=== PATIENT | female | born 1965 | race Caucasian/White ===

== ENCOUNTER 2018-06-24 07:47 | Day surgery (SDC) | payer OTHER, SELFPAY ==
[2018-06-24 08:04] VITALS: BP 128/72; PULSE 106; RESP 14; TEMP 36.6; O2SAT 99; BMI 25.1
[2018-06-24 09:21] VITALS: BP 108/72; BP 128/72; PULSE 94; RESP 16; TEMP 36.6; O2SAT 100
--- NOTE | 2018-06-24 09:21 | PCM.OPRPT ---
Problem List (1) Diarrhea Status: Acute Qualifiers: Diarrhea type: unspecified type Qualified Code(s): R19.7 - Diarrhea, unspecified Report of Operation Date of Procedure: 06/24/18 Pre-Operative Diagnosis: 1. Patient is ever had screening colonoscopy and she is over age 50. 2. Chronic diarrhea since surgery 3 years ago Post-Operative Diagnosis: Normal colonoscopy Surgery/Procedure Performed:: Colonoscopy Specimen's removed: None Description of Procedure: The major risks and benefits associated with the procedure were explained to the patient in detail. The patient verbalized understanding and agreement with the same. The patient was brought to the endoscopy suite. After adequate sedation was achieved, the patient was placed in the left lateral decubitus position and a digital rectal exam was performed. This examination was within normal limits. A well-lubricated colonoscope was then inserted into the rectum and advanced under direct visualization to the level of the cecum. The bowel prep was good. The cecum was identified by both visual and anatomic landmarks. A photograph was taken of the end of the cecum. The scope was then fully withdrawn while examining the color, texture, anatomy and integrity of the mucosa from the cecum to the anal canal. The findings were consistent with normal colonic mucosa. Over 6 minutes were taken to examine the colonic mucosa. Upon reaching the rectum the scope was retroflexed to examine the distal rectal vault. The scope was then straightened and was completely retrieved upon exiting the anal canal and the procedure was terminated. The patient was then transferred to the recovery room in stable condition. I found no explanation for her chronic diarrhea. Recommendations for follow up: 10 years
[2018-06-24 09:25] VITALS: BP 128/72; BP 89/59; PULSE 101; RESP 16; O2SAT 100
[2018-06-24 09:30] VITALS: BP 112/88; BP 128/72; PULSE 96; RESP 16; O2SAT 100
[2018-06-24 09:35] VITALS: BP 126/48; BP 128/72; PULSE 95; RESP 16; TEMP 37.2; O2SAT 100
[2018-06-24 09:55] VITALS: BP 128/72
== END 2018-06-24 10:02 | disposition home or self-care (01) ==
LOC: EN 07:48 → AC 07:51
PROVIDERS: Family Provider Family Medicine; PCP Family Medicine; Visit Provider Surgery
PROC: 0DJD8ZZ Inspection of Lower Intestinal Tract, Via Natural or Artificial Opening Endoscopic (ICD-10-PCS; CPT 45378; principal; 2018-06-24 08:40)
DX: Z12.11 Encounter for screening for malignant neoplasm of colon (principal); K58.0 Irritable bowel syndrome with diarrhea; G43.909 Migraine, unspecified, not intractable, without status migrainosus; Z79.899 Other long term (current) drug therapy; Z78.0 Asymptomatic menopausal state; Z86.2 Personal history of diseases of the blood and blood-forming organs and certain disorders involving the immune mechanism; Z90.710 Acquired absence of both cervix and uterus
CPT/HCPCS: 45378; J7120

== ENCOUNTER → 2018-06-30 15:54 | Outpatient (CLI) | payer OTHER, SELFPAY ==
--- NOTE | 2018-06-30 15:57 | BI_ITS ---
MAMMOGRAPHY - BILATERAL SCREENING REASON FOR EXAM: Female, 53 years old. Routine annual screening examination. PERTINENT HISTORY: Non-contributory. Remote left ultrasound guided biopsy. TECHNIQUE: Digital bilateral breast bonnie (3D mammographic acquisition) in the CC and MLO projections. 2-D mediolateral oblique (MLO) and craniocaudad (CC) views of both breasts were obtained. CAD: Full Field Digital Mammography with Computer Added Detection was performed. COMPARISON: Comparison is made with prior study dated June 21, 2017 and June 06, 2015. FINDINGS: Breast Composition: The breasts are heterogeneously dense, which may obscure small masses. There are no dominant masses or suspicious calcifications. Stable benign appearing axillary lymph nodes. No other significant abnormalities are identified. There has been no significant change since the prior study. BI/SCREENING MAMM (CAD), BILAT IMPRESSION: Stable bilateral screening mammogram. Yearly follow-up mammogram recommended. (A) ASSESSMENT CATEGORY: BIRADS Category 2: Benign. A letter regarding these results will be sent to the patient by the facility within 30 days. Approximately 10% of breast cancers are not detected by mammography. A normal mammogram should not delay biopsy of a clinically suspicious abnormality. [id number] Electronically Signed: Paolo Shine MD at 9:22 EDT Tel [phone], Service support ,
== END ==
PROVIDERS: Family Provider Family Medicine; PCP Family Medicine; Visit Provider Obstetrics & Gynecology
DX: Z12.31 Encounter for screening mammogram for malignant neoplasm of breast (principal)
CPT/HCPCS: 77063; 77067

== ENCOUNTER → 2018-07-04 08:47 | Outpatient (CLI) | payer OTHER, SELFPAY ==
--- NOTE | 2018-07-04 08:53 | US_ITS ---
STUDY: ABDOMINAL ULTRASOUND - RIGHT UPPER QUADRANT REASON FOR VISIT: Female, 53 years old. Chronic diarrhea TECHNIQUE: Ultrasound evaluation of the right upper quadrant was performed with real-time and static andrade-scale imaging. TECHNICAL QUALITY: Adequate. COMPARISON: CT July 21, 2012 FINDINGS: Liver: The liver measures 14.4 cm. There is normal echogenicity of the liver. The bile ducts are within normal limits. There is hepatic color flow. The direction of portal flow is hepatopetal. There is no demonstrated mass lesion. Gallbladder: Normal distended gallbladder. The gallbladder wall measures 2.4 mm. There is a positive sonographic Pereira's sign. There is no pericholecystic fluid. There are multiple echogenic structures within the gallbladder, consistent with multiple gallstones. Common Bile Duct (C.B.D.): The common bile duct measures 2. mm. Pancreas: Normal size of the head, body and tail of the pancreas. There is increased echogenicity of the pancreas. There is no demonstrated pancreatic mass or cyst. Right Kidney: Normal size of the right kidney. The right kidney measures 10 x 5 x 4.4 cm. Normal renal cortex. The right cortex measures 1.6 cm. There is no demonstrated renal mass or cyst. There is no right hydronephrosis. US/Abdomen Limited IMPRESSION: Positive Pereira sign. Cholelithiasis. Findings suggest cholecystitis. Electronically Signed: Hugh Xiong MD at 22:37 EDT , Service support ,
[2018-07-04 11:18] LABS: Vitamin D,25 Hydroxy 32.2 ng/mL (29.95-100.01)
[2018-07-04 11:27] LABS: AST(SGOT) 20 U/L (15-37); Alanine Aminotransfer ALT/SGPT 22 U/L (13-56); Albumin, Serum 4.1 g/dL (3.2-5.0); Alkaline Phosphatase 70 U/L (45-117); Anion Gap 7 (5-15); BUN 12 mg/dL (7-18); BUN/Creat Ratio 15.7 RATIO (10-20); Calcium,Total 9.1 mg/dL (8.5-10.1); Chloride 107 mmol/L (98-107); Cholesterol 193 mg/dL (200); Creatinine, Serum 0.76 mg/dL (0.55-1.02); EST Glomerular Filtration Rate 84 mL/min (>60); Est Glom Filt Rate - Afr Amer 101 mL/min (>60); Globulin 4.1 g/dL (2.2-4.2); Glucose 85 mg/dL (74-106); High Density Lipoprotein 89 mg/dL; Potassium 3.7 mmol/L (3.5-5.1); Protein, Total 8.2 g/dL (6.4-8.2); Sodium Level 142 mmol/L (136-145); Thyroid Stim Hormone (TSH) 2.51 uIU/mL (0.358-3.74); Triglycerides 74 mg/dL; Very Low Density Lipoprotein 15 mg/dL (5-40)
== END ==
PROVIDERS: Family Provider Family Medicine; PCP Family Medicine; Visit Provider Family Medicine
DX: K58.9 Irritable bowel syndrome, unspecified (principal); E55.9 Vitamin D deficiency, unspecified; Z13.220 Encounter for screening for lipoid disorders; R19.7 Diarrhea, unspecified
CPT/HCPCS: 36415; 76705; 80053; 80061; 82306; 84443

== ENCOUNTER → 2019-05-11 13:59 | Outpatient (CLI) | payer SELFPAY ==
[2019-05-11 15:59] LABS: Absolute Lymphocyte Count 1.49 X10^3/ul (0.83-4.51); Absolute Neutrophil Count 2.8 X10^3/uL (2.0-7.7); Basophil# 0.04 X10^3/uL; Basophil% 0.8 % (0-1); Eosinophil# 0.11 X10^3/uL; Eosinophils% 2.3 % (0-5); Hematocrit 41.6 % (37-47); Hemoglobin 13.5 g/dl (12.0-15.0); Lymphocyte # 1.49 X10^3/ul (4.0); Lymphocyte % 30.6 % (19-41); Mean Corp Hgb Conc 32.5 g/gl (32-36); Mean Corpuscular Hgb 30.5 pg (27.0-32.0); Mean Corpuscular Volume 93.9 fL (81-99); Mean Platelet Vol. 12.3 fl (6.2-12.0); Monocyte% 8.2 % (0-10); Neutrophil # 2.82 X10^3/uL (2.7-7.7); Neutrophil % 57.9 % (47-70); Platelet Count 197 K/mm3 (150-450); RBC Distribution Width CV 12.2 % (11.6-14.6); RBC Distribution Width SD 41.3 fl (35.1-43.9); Red Blood Count 4.43 M/mm3 (4.2-5.4); White Blood Count 4.9 K/mm3 (4.4-11.0)
[2019-05-11 16:01] LABS: POSITIVE COUNT NO; POSITIVE DIFFERENTIAL NO; POSITIVE MORPHOLOGY NO
[2019-05-11 16:07] LABS: ALB/GLOB Ratio 0.9 RATIO (0.9-2.4); AST(SGOT) 22 U/L (15-37); Alanine Aminotransfer ALT/SGPT 26 U/L (13-56); Albumin, Serum 3.7 g/dL (3.2-5.0); Alkaline Phosphatase 67 U/L (45-117); Anion Gap 10 (5-15); BUN 12 mg/dL (7-18); BUN/Creat Ratio 14.4 RATIO (10-20); Calcium,Total 8.8 mg/dL (8.5-10.1); Chloride 106 mmol/L (98-107); Creatinine, Serum 0.84 mg/dL (0.55-1.02); EST Glomerular Filtration Rate 75 mL/min (>60); Est Glom Filt Rate - Afr Amer 91 mL/min (>60); Glucose 92 mg/dL (74-106); Protein, Total 7.7 g/dL (6.4-8.2); Sodium Level 143 mmol/L (136-145)
[2019-05-11 16:12] LABS: Partial Thromboplast Time 29.8 Seconds (24.1-36.2)
== END ==
PROVIDERS: Family Provider Family Medicine; PCP Family Medicine; Visit Provider Family Medicine
DX: K81.9 Cholecystitis, unspecified (principal); E55.9 Vitamin D deficiency, unspecified
CPT/HCPCS: 36415; 80053; 82306; 85025; 85610; 85730

== ENCOUNTER 2019-06-10 13:30 | Day surgery (SDC) | payer SELFPAY ==
--- NOTE | 2019-05-14 02:25 | HP_ITS ---
Intake Vital Signs 05/14/19 Height 5 ft 7 in 05/14/19 Weight: 169 lb 5 oz 05/14/19 Body Mass Index (BMI) 26.5 05/14/19 Blood Pressure 120/78 05/14/19 Blood Pressure Location Rt brachial 05/14/19 Blood Pressure Position Sitting 05/14/19 Respiratory Rate 18 05/14/19 Pulse Rate 70 05/14/19 Pulse Ox 98 Intake Visit Reasons: CHOLECYSTITIS Chief Complaint: cholelithiasis, abd pain Crystal Growing Technician Required: No Is patient in pain?: Yes Pain scale (1-10): 4 Allergies amitriptyline Allergy (Mild, Verified 05/14/19 14:14) Rash fluticasone [From Advair Diskus] Allergy (Mild, Verified 05/14/19 14:13) hives Medications Ibuprofen [Advil] 200 mg PO Q4H PRN PRN 06/30/15 [History Confirmed 05/14/19] Nortriptyline HCl [Pamelor] 10 mg PO QHS 06/30/15 [History Confirmed 05/14/19] Topiramate [Topamax] 50 mg PO BID 06/30/15 [History Confirmed 05/14/19] eluxadoline 75 mg tablet 75 mg PO DAILY PRN 06/06/18 [History Confirmed 05/14/19] Is last menstrual period known: No Post menopausal: Yes Patient : No PFSH Medical History Gallstones (Acute) Diarrhea (Acute) Migraines (Acute) Surgical History History of arthroscopy of right knee (Acute) History of colonoscopy (Acute) History of lateral meniscus repair of left knee (Acute) History of lateral meniscus repair of right knee (Acute) H/O resection of small bowel (Acute) H/O tubal ligation (Acute) History of right oophorectomy (Acute) S/P appendectomy (Acute) h/o partial hysterectomy (Acute) h/o tonsillectomy (Acute) h/o torn meniscus (Acute) Family History Brother Asthma Mother Hypertension Heart disease Father Hypertension Heart disease Kidney disease Renal failure Brother Asthma Social History Smoking Status: Never smoker alcohol intake: never HPI HPI HPI: THAIS LOPEZ, is a 54 F who presents to the office today for HPI HPI Surgical H&P: Yes HPI: THAIS LOPEZ, is a 54 F who presents to the office today for evaluation of symptomatic cholelithiasis. For probably over a year and a half the patient has been experiencing right upper quadrant abdominal pain and diarrhea after she eats foods she has had a gallbladder ultrasound completed 07/04/2018 at that time she had a positive Pereira sign cholelithiasis and findings suggestive of acute cholecystitis however she did not undergo gallbladder surgery at that time at that time she was also noted to have a total bili of 1.5 but the rest of her liver function tests were within normal limits. She has met most of her fraser down in [place] and did not want to have her surgery down there at that time. Subsequently coming back up here now for the summer she is ready to have her gallbladder surgery performed. She is not experiencing any nausea or vomiting. Exam Const General: no acute distress, well developed, well hydrated Orientation: oriented to person, oriented to place, oriented to time [facility] Head: normocephalic, atraumatic Ears: external ears normal Mouth: moist mucous membranes Eyes Sclera: sclerae normal Pupils: normal by confrontation Neck Neck: no lymphadenopathy noted Neck mass: No Thyroid: thyroid normal, symmetrical Chest Chest palpation & inspection: normal inspection of the chest Resp Effort & Inspection: normal respiratory effort Auscultation: clear to auscultation bilaterally Percussion: percussion normal Cardio Rate: regular rate Rhythm: regular rhythm GI Palpation: soft, no hepatosplenomegaly, no masses, tender Auscultation: normal bowel sounds Rectal Exam: other Other: Rectal exam deferred. Extrem General: normal to inspection, no clubbing, cyanosis or edema Assessment & Plan Problems 1. Calculus of gallbladder with chronic cholecystitis without obstruction K80.10 2. Abdominal pain, RUQ R10.11 Plan My plan is to perform a laparoscopic cholecystectomy with intraoperative cholangiogram. The planned surgical procedure was discussed extensively with the patient. The risks, benefits, anticipated outcomes and possible complication were mentioned. My staff has also explained the procedure in understandable terms and the patient was given the option to take printed material concerning the planned procedure. The patient had the opportunity to ask questions concerning the planned procedure. The patient freely consents to the planned procedure. Coding Level of Care Code Off vis,new,level 3 Diagnoses Calculus of gallbladder with chronic cholecystitis without obstruction K80.10 ??Cholelithiasis location: gallbladder ??Cholecystitis acuity: chronic Abdominal pain, RUQ R10.11 05/14/19 1425 <Electronically signed by Porfirio carreon MD> Date _ Porfirio Key MD I have re-examined the patient. There are no clinical changes since date of exam.
[2019-05-14 14:12] VITALS: BMI 26.5
--- NOTE | 2019-06-05 13:23 | EKG12_ITS ---
Test Reason : PRE-OP Blood Pressure : / mmHG Vent. Rate : 093 BPM Atrial Rate : 093 BPM P-R Int : 134 ms QRS Dur : 082 ms QT Int : 368 ms P-R-T Axes : 064 017 042 degrees QTc Int : 457 ms Normal sinus rhythm Nonspecific ST abnormality Abnormal ECG Confirmed by JARAD MIRELES, MICHELLE ([id number]), assistant film editor LAURNE HERNANDEZ ([id number]) on 06/08/2019 1:41:17 PM Referred By: Porfirio Key Confirmed By:MICHELLE ABRAHAM MD
[2019-06-10] VITALS (8 sets, daily range): BP systolic 109–126; BP diastolic 65–77; PULSE 56–100; RESP 16–18; TEMP 36.4–36.9; O2SAT 96–100; BMI 25.0
[2019-06-10] MEDS: Cefazolin 2 GM in 0.9% Normal Saline 100 ML IV (14:42)
--- NOTE | 2019-06-10 14:55 | PCM.OPRPT ---
Problem List (1) Calculus of gallbladder with chronic cholecystitis without obstruction Status: Chronic (2) Right upper quadrant pain Status: Acute Report of Operation Date of Procedure: 06/10/19 Pre-Operative Diagnosis: Calculus of the gallbladder with chronic cholecystitis. Right upper quadrant abdominal pain Post-Operative Diagnosis: Same Surgery/Procedure Performed:: Laparoscopic cholecystectomy Type of Anesthesia:: General Anesthesiologist: Krunal Ba Specimen's removed: Gallbladder Estimated Blood Loss (mL): < 25 cc Description of Procedure: Patient was brought into the operating room. Placed in the supine position. Under excellent general endotracheal base of the abdomen was sterilely prepped and draped in usual fashion. Local was injected in the midline small incision was made place a varies needle inside the abdomen but I got high pressures and I immediately removed it I therefore made an incision in the right upper quadrant used the Visiport and gain access into the intra-abdominal cavity without difficulty or injury to underlying structures. Patient was noted to have dense adhesions in the lower midline. I placed a subxiphoid #5 trocar and just inferior to this I placed another #5 trocar both of these under direct visualization. I then inspected the right lower quadrant of the abdomen I injected local found an area where I could place a 1012 trocar without difficulty although it was not in the midline incision was made and a 1012 trocar was placed without difficulty under direct visualization. Patient was placed in the head up and rotated to the left position fundus of the gallbladder was grasped retracted cephalad direction infundibulum was grasped retracted laterally I dissected out the cystic duct placed hemoclips proximally distally and ligated the duct identified the cystic artery placed hemoclips proximally distally and ligated the artery. There is a posterior branch of the cystic artery which identified and I placed a Hemoclip on this as well. I deliver the gallbladder from the gallbladder bed with use of electrocautery there was no spillage of bile or stones. Placed a specimen specimen bag and delivered through the umbilical port without difficulty I irrigated the right upper quadrant good hemostasis was noted. I removed the 1012 trocar and closed the fascia with a yoawzw-zz-pyima stitch of 0 Vicryl then reinspected the fascia was closed. I then remove the other trochars under direct visualization good hemostasis was noted. Skin incisions were closed with some particular stitches of 4-0 Monocryl. Steri-Strips were applied. Sterile dressings were applied. The patient tolerated the procedure well. - Admit VTE Documentation VTE Present on Admission: No VTE Mechan Device Prophylaxis: SCD's VTE Pharm Prophylaxis ordered?: No Reason prophylaxis not ordered:: Treatment Not Indicated
--- NOTE | 2019-06-10 14:56 | PCM.DC.GB ---
Discharge Diet: Light diet - advance as tolerated Discharge Activity: May Not Drive - for 2-3 days or while taking narcotic pain medications., - - Do not drive, work heavy equipment or sign legal documents for 24 hours. May shower in (days): 1 - with the bandage in place. Additional Activity Instructions:: Pain medication may cause nausea. You should typically eat light foods as you take your pain medications. Pain medication may also cause constipation. If this is a problem for you, please discuss with your doctor. Call your doctor if your incision/area has: Continuous Slow Oozing, Sudden Increased Bleeding, Increased Pain/ Swelling, Increased Redness, Foul Smelling Discharge Call your doctor if you observe: Fever of 101 or Higher Suture Line Care: Avoid Pulling/Pushing, Avoid Pinching/Bending Additional Dressing/Incision Instructions:: Leave operative bandaids on for 2 days. When you remove dressing, leave Steri-Strips on until your follow-up appointment, or until the Steri-Strips fall off on their own. Allergies/Adverse Reactions: Allergies amitriptyline Allergy (Mild, Verified 06/03/19 13:16) Rash fluticasone [From Advair Diskus] Allergy (Mild, Verified 06/03/19 13:16) hives Medications to take at Discharge Ibuprofen [Advil] 200 mg PO Q4H PRN PRN 06/30/15 Nortriptyline HCl [Pamelor] 10 mg PO QHS 06/30/15 Topiramate [Topamax] 75 mg PO BID 06/30/15 eluxadoline 75 mg tablet 75 mg PO DAILY PRN 06/06/18 proMETHazine tablet [Phenergan tablet] 25 mg PO PRN PRN 06/03/19 Oxycodone HCl/Acetaminophen [Percocet 5/325] 1 - 2 tab PO Q4H PRN PRN 6 Days #30 tab 06/10/19 The following prescriptions were given: Oxycodone HCl/Acetaminophen [Percocet 5/325] 1 - 2 tab PO Q4H PRN PRN 6 Days #30 tab PRN Reason: Pain Prescription Printed Orders to be completed after discharge: 12 Lead EKG [[facility]] Time Frame: 06/03/19, Facility: [facility], Location: Cardiovascular Services Primary Care Physician: Jesus Morillo MD [Primary Care Provider] - Test Results: Test results from this visit will be discussed in further detail at your follow-up appointment, if applicable. Please Follow Up With: Porfirio Key MD - Please call [phone] to schedule an appointment. When: 7 days after your surgery.
[2019-06-10] MEDS: Bupivacaine 0.5% PF 10 ML VIAL (15:20)
--- NOTE | 2019-06-10 15:25 | GALL_PTH ---
PATIENT: THAIS LOPEZ [place] [facility] [id number] AGE/SX: 54/F ROOM: RE06/10/[address]: Dr. Porfirio Key MD : [id number] BED: DIS: 06/10/2019 SPEC #: [id number] RECD: 06/10/19 16:32 STATUS: CALEB SILVIANO #: [id number] RACHID: 06/10/19 15:[address]: Porfirio Key DEPT: SURGICAL PATHOLOGY RECD BY: Tang Crowe ENTERED: 06/11/19 10:51 SP TYPE: AARTI NOE DR: Dr. Leland Morillo MD Tissues: Gallbladder, NOS Procedures: Surgery Specimen Level III HEADER OPERATION: Laparoscopic cholecystectomy PRE-OP DIAGNOSIS: Calculus of gallbladder, chronic cholecystitis, cholelithiasis TISSUE SUBMITTED: Gallbladder MICROSCOPIC DIAGNOSIS Gallbladder, cholecystectomy: Chronic cholecystitis and cholelithiasis. SJ:meredith 06/12/19 MICROSCOPIC DESCRIPTION Slides are reviewed. GROSS DESCRIPTION Received is one container labeled with the patient's name and designated gallbladder. The specimen consists of a gallbladder measuring 9 cm in length and up to 2.5 cm in diameter. The external surface is pink-fiore, smooth and glistening for the most part. Focally it is granular, hemorrhagic and contains cautery artifact. The gallbladder contains small amount of andrade mucoid bile and distended with multiple, multifaceted brown stones and stone fragments measuring in aggregate 4 x 4.5 x 2 cm and 0.5 to 1.5 cm in average dimension. The mucosa is bile-stained and without any mass lesions. The gallbladder wall measures up to 0.2 cm in thickness. Heat Treater Head sections from the gallbladder and the cystic duct are submitted in one cassette. / SJ:meredith 06/11/19 TC:3 CPT: 08557
[2019-06-10] MEDS: oxyCODONE 5 MG Tablet PO (18:09)
[2019-06-10] MEDS: Acetaminophen 325 MG Tablet PO (18:09)
== END 2019-06-10 18:25 | disposition home or self-care (01) ==
LOC: SDC 13:31 → AC 13:32
PROVIDERS: Family Provider Family Medicine; PCP Family Medicine; Referring Provider Surgery; Visit Provider Surgery
PROC: (CPT 47562; principal; 2019-06-10 15:05)
DX: K80.10 Calculus of gallbladder with chronic cholecystitis without obstruction (principal); K58.9 Irritable bowel syndrome, unspecified; E78.00 Pure hypercholesterolemia, unspecified; Z78.0 Asymptomatic menopausal state; Z79.899 Other long term (current) drug therapy; Z86.2 Personal history of diseases of the blood and blood-forming organs and certain disorders involving the immune mechanism
CPT/HCPCS: 00790; 47562; 88304; 93005; J7120; J2405

== ENCOUNTER → 2020-05-09 10:31 | Outpatient (CLI) | payer SELFPAY ==
[2019-06-10 13:54] VITALS: BMI 25.0
[2020-05-09 12:43] LABS: Vitamin D,25 Hydroxy 25.8 ng/mL
[2020-05-09 12:53] LABS: Anion Gap 6 (5-15); BUN 10 mg/dL (7-18); BUN/Creat Ratio 13.3 RATIO (10-20); Calcium,Total 9.1 mg/dL (8.5-10.1); Chloride 110 mmol/L (98-107); Creatinine, Serum 0.75 mg/dL (0.55-1.02); EST Glomerular Filtration Rate 84 mL/min (>60); Est Glom Filt Rate - Afr Amer 102 mL/min (>60); Glucose 99 mg/dL (74-106); Magnesium 2.4 mg/dL (1.6-2.6); Potassium 3.7 mmol/L (3.5-5.1); Sodium Level 143 mmol/L (136-145)
== END ==
PROVIDERS: PCP Family Medicine; Visit Provider Family Medicine
DX: E55.9 Vitamin D deficiency, unspecified (principal); G43.909 Migraine, unspecified, not intractable, without status migrainosus; R00.0 Tachycardia, unspecified
CPT/HCPCS: 36415; 80048; 82306; 83735; 84443

== ENCOUNTER → 2021-05-16 08:47 | Outpatient (CLI) | payer SELFPAY ==
[2019-06-10 13:54] VITALS: BMI 25.0
[2021-05-16 10:58] LABS: Anion Gap 9 (5-15); BUN 11 mg/dL (7-18); BUN/Creat Ratio 14.3 RATIO (10-20); Calcium,Total 9.5 mg/dL (8.5-10.1); Chloride 107 mmol/L (98-107); Cholesterol 204 mg/dL (200); Creatinine, Serum 0.77 mg/dL (0.55-1.02); EST Glomerular Filtration Rate 82 mL/min (>60); Est Glom Filt Rate - Afr Amer 99 mL/min (>60); Glucose 91 mg/dL (74-106); High Density Lipoprotein 83 mg/dL; Potassium 3.9 mmol/L (3.5-5.1); Sodium Level 139 mmol/L (136-145); Thyroid Stim Hormone (TSH) 3.66 uIU/mL (0.358-3.74); Triglycerides 108 mg/dL; Very Low Density Lipoprotein 22 mg/dL (5-40)
[2021-05-16 11:03] LABS: Vitamin D,25 Hydroxy 30.4 ng/mL
== END ==
PROVIDERS: PCP Family Medicine; Referring Provider Family Medicine; Visit Provider Family Medicine
DX: M85.80 Other specified disorders of bone density and structure, unspecified site (principal); Z13.220 Encounter for screening for lipoid disorders; Z13.29 Encounter for screening for other suspected endocrine disorder; K58.9 Irritable bowel syndrome, unspecified
CPT/HCPCS: 36415; 80048; 80061; 82306; 84443

== ENCOUNTER → 2022-05-16 | Outpatient (CLI) | payer SELFPAY ==
--- NOTE | 2022-05-16 15:51 | RAD_ITS ---
EXAM: XR CERVICAL SPINE, 4 OR 5 VIEWS CLINICAL INDICATION: MIGRAINE TECHNIQUE: Frontal, lateral and bilateral oblique views of the cervical spine. This report was created using Net[employer]ee[employer] report generation technology. COMPARISON: None. FINDINGS: VERTEBRAE: Loss of the cervical lordosis suggestive of muscle spasm. Preserved vertebral body height. No acute fracture. No spondylolisthesis. Multilevel facet arthropathy. DISC SPACES: Disc space narrowing at C5-6 and C6-7. Neural foraminal narrowing noted on the right at C5-6 and C6-7 the left at C4-5 and C5-6 related to uncinate joint hypertrophy. SOFT TISSUES: Unremarkable. No prevertebral soft tissue widening. LUNG APICES: Clear. RAD/Cerv Spine 4 or 5 Views IMPRESSION: Moderate spondylosis. Electronically Signed: Hermann Mccauley MD at 11:04 EDT ,
== END | disposition home or self-care (01) ==
PROVIDERS: PCP Family Medicine; Referring Provider Family Medicine; Visit Provider Family Medicine
DX: G43.009 Migraine without aura, not intractable, without status migrainosus (principal); M47.812 Spondylosis without myelopathy or radiculopathy, cervical region
CPT/HCPCS: 72050

== ENCOUNTER → 2022-06-21 | Outpatient (CLI) | payer SELFPAY ==
--- NOTE | 2022-06-21 17:54 | MRI_ITS ---
EXAM: MR HEAD WITHOUT INTRAVENOUS CONTRAST CLINICAL INDICATION: migrianes TECHNIQUE: Multiplanar and multisequence MR images of the brain were obtained without intravenous contrast. Magnetic field strength 1.5 T. This report was created using LeanKit report Koalify technology. COMPARISON: None. FINDINGS: BRAIN AND EXTRA-AXIAL SPACES: Unremarkable. No intra- or extra-axial hemorrhage. No evidence of acute infarct. No intracranial mass or mass effect. There is preservation of the andrade/white matter interface. Posterior fossa structures are unremarkable. Ventricles are appropriate for age. No hydrocephalus. Basal cisterns are patent. SELLA: Unremarkable. Normal sella turcica, pituitary gland, infundibular stalk, optic chiasm and hypothalamus. AUDITORY SYSTEM: Unremarkable. The internal auditory canals are patent. BONES/JOINTS: Unremarkable. No discrete lytic or blastic abnormalities. SINUSES: Unremarkable as visualized. Clear. MASTOID AIR CELLS: Unremarkable as visualized. Clear. ORBITS: Unremarkable as visualized. Both globes, extraocular muscles, optic nerves and retrobulbar fat appear unremarkable. VASCULATURE: Unremarkable as visualized. Normal flow voids in the major intracranial circulation. MRI/Brain without Contrast IMPRESSION: Negative MRI brain without intravenous contrast. Electronically Signed: David Dueñas MD at 2:19 EDT ,
== END | disposition home or self-care (01) ==
LOC: MRI 17:54
PROVIDERS: PCP Family Medicine; Visit Provider Family Medicine
DX: G43.009 Migraine without aura, not intractable, without status migrainosus (principal)
CPT/HCPCS: 70551

== ENCOUNTER → 2023-05-16 | Outpatient (CLI) | payer BC, SELFPAY ==
[2023-05-16 10:36] LABS: Erythrocyte Sedimentation Rate 14 mm/hr (0-30)
[2023-05-16 10:40] LABS: Absolute Neutrophil Count 2.6 X10^3/uL (2.0-7.7); Basophil# 0.04 X10^3/uL; Basophil% 0.8 % (0-1); Eosinophil# 0.08 X10^3/uL; Eosinophils% 1.7 % (0-5); Hematocrit 42.5 % (37-47); Hemoglobin 13.7 g/dL (12.0-15.0); Lymphocyte % 35.2 % (19-41); Mean Corp Hgb Conc 32.2 g/dL (32-36); Mean Corpuscular Hgb 30.9 pg (27.0-32.0); Mean Corpuscular Volume 95.9 fL (81-99); Mean Platelet Vol. 13.2 fl (6.2-12.0); Monocyte% 8.3 % (0-10); NRBC Flagged by Analyzer 0 % (0-5); Neutrophil # 2.59 X10^3/uL (2.7-7.7); Neutrophil % 53.6 % (47-70); Platelet Count 175 K/mm3 (150-450); RBC Distribution Width CV 12.2 % (11.6-14.6); RBC Distribution Width SD 42.5 fl (35.1-43.9); Red Blood Count 4.43 M/mm3 (4.2-5.4); White Blood Count 4.8 K/mm3 (4.4-11.0)
[2023-05-16 11:02] LABS: Vitamin D,25 Hydroxy 42.7 ng/mL
[2023-05-16 11:41] LABS: Anion Gap 7 (5-15); BUN 13 mg/dL (7-18); Calcium,Total 8.9 mg/dL (8.5-10.1); Chloride 110 mmol/L (98-107); Cholesterol 198 mg/dL (200); Creatinine, Serum 0.72 mg/dL (0.55-1.02); EST Glomerular Filtration Rate 87 mL/min (>60); Est Glom Filt Rate - Afr Amer 106 mL/min (>60); Glucose 97 mg/dL (74-106); High Density Lipoprotein 65 mg/dL; Magnesium 2.4 mg/dL (1.6-2.6); Potassium 3.9 mmol/L (3.5-5.1); Sodium Level 140 mmol/L (136-145); Thyroid Stim Hormone (TSH) 4.34 uIU/mL (0.358-3.74); Triglycerides 136 mg/dL; Very Low Density Lipoprotein 27 mg/dL (5-40)
[2023-05-17 17:27] LABS: T4 Free Direct 0.75 ng/dL (0.76-1.46)
== END | disposition home or self-care (01) ==
LOC: MFPLAB 09:18
PROVIDERS: PCP Family Medicine; Visit Provider Family Medicine
DX: Z13.220 Encounter for screening for lipoid disorders (principal); Z13.29 Encounter for screening for other suspected endocrine disorder; M85.80 Other specified disorders of bone density and structure, unspecified site; E55.9 Vitamin D deficiency, unspecified; R25.2 Cramp and spasm
CPT/HCPCS: 36415; 80048; 80061; 82306; 83735; 84439; 84443; 85025; 85652

== ENCOUNTER → 2023-06-05 | Outpatient (CLI) | payer BC, SELFPAY ==
--- NOTE | 2023-06-05 11:23 | BD_ITS ---
STUDY: DUAL ENERGY X-RAY ABSORPTIOMETRY / DXA REASON FOR EXAM: Female, 58 years old. OSTEO TECHNIQUE: Bone Mineral Density (BMD) measurements of lumbar spine and bilateral hips were obtained. COMPARISON: Comparison is made with prior study dated May 23, 2017. FINDINGS: Lumbar Spine (L1-L4): g/cm2 (0.668) / T-score (-3.9) / Z-score (-2.4) Findings are suggestive of osteoporosis with a high fracture risk. Left Femur Total: g/cm2 (0.795) / T-score (-1.2) / Z-score (-0.2) Left Femoral Neck: g/cm2 (0.604) / T-score (-2.2) / Z-score (-0.9) Right Femur Total: g/cm2 (0.827) / T-score (-0.9) / Z-score (0.0) Right Femoral Neck: g/cm2 (0.672) / T-score (-1.6) / Z-score (-0.3) The T-Scores on the most recent prior examination were: Lumbar Spine (L1-L4): There has been worsening of bone density since the previous examination. Left Femur Total: which represents an improvement of 2.5%. Right Femur Total: which represents an improvement of 6.6%. BD/Dexa Bone Density Study IMPRESSION: The patient is considered osteoporotic as outlined below according to World Gallo Organization (WHO) criteria with a high fracture risk. There has been worsening of bone density since the previous examination. Reference Information: The T-score is the number of standard deviations above or below the standard which is normal for young adults at their peak bone mineral density. The World Health Organization (WHO) interprets the T-scores as follows: Above -1 Normal bone density Between -1 and -2.5 Osteopenia Equal to / or below -2.5 Osteoporosis As a practical clinical guideline, osteopenia may be graded as follows: Mild -1 through -1.5 Moderate -1.6 through -2.0 Severe -2.1 through -2.4 The Z-score is the number of standard deviations above or below age-matched controls. A Z-score of less than -1.5 would be considered abnormal. References: 1. NIH Osteoporosis and Related Bone Diseases www osteo.org 2. International Society for Clinical Densitometry www iscd.org 3. National Osteoporosis Foundation www nof.org Electronically Signed: Paolo Shine MD at 11:18 EDT ,
== END | disposition home or self-care (01) ==
PROVIDERS: PCP Family Medicine; Referring Provider Family Medicine; Visit Provider Family Medicine
DX: M81.0 Age-related osteoporosis without current pathological fracture (principal); M85.80 Other specified disorders of bone density and structure, unspecified site
CPT/HCPCS: 77080

== ENCOUNTER → 2023-06-07 | Outpatient (CLI) | payer BC, SELFPAY ==
[2023-06-07 11:04] LABS: Ionized Calcium 5.05 mg/dL (4.36-5.20)
[2023-06-07 11:25] LABS: Magnesium 2.3 mg/dL (1.6-2.6); Phosphorus 3.6 mg/dL (2.5-4.9)
[2023-06-07 11:26] LABS: PTHIN 29.3 pg/mL (18.4-80.1)
== END | disposition home or self-care (01) ==
LOC: MFPLAB 10:22
PROVIDERS: PCP Family Medicine; Visit Provider Family Medicine
DX: M85.80 Other specified disorders of bone density and structure, unspecified site (principal)
CPT/HCPCS: 36415; 82330; 83735; 83970; 84100

== ENCOUNTER → 2024-05-08 | Outpatient (CLI) | payer BC, SELFPAY ==
[2024-05-08 12:18] LABS: Erythrocyte Sedimentation Rate 14 mm/hr (0-30)
[2024-05-08 12:21] LABS: Hematocrit 40.5 % (37-47); Hemoglobin 13.3 g/dL (12.0-15.0); Mean Corp Hgb Conc 32.8 g/dL (32-36); Mean Corpuscular Hgb 30.5 pg (27.0-32.0); Mean Corpuscular Volume 92.9 fL (81-99); Platelet Count 187 K/mm3 (150-450); RBC Distribution Width CV 12.1 % (11.6-14.6); RBC Distribution Width SD 41.4 fl (35.1-43.9); Red Blood Count 4.36 M/mm3 (4.2-5.4); White Blood Count 4.6 K/mm3 (4.4-11.0)
[2024-05-08 12:34] LABS: PTHIN 52.2 pg/mL (18.4-80.1)
[2024-05-08 12:37] LABS: Vitamin D,25 Hydroxy 30.7 ng/mL
[2024-05-08 13:05] LABS: Anion Gap 6 (5-15); BUN 7 mg/dL (7-18); BUN/Creat Ratio 9.4 RATIO (10-20); CRP < 2.90 mg/L (0.0-3.0); Calcium,Total 9.1 mg/dL (8.5-10.1); Chloride 111 mmol/L (98-107); Cholesterol 170 mg/dL (200); Creatinine, Serum 0.74 mg/dL (0.55-1.02); EST Glomerular Filtration Rate 84 mL/min (>60); Est Glom Filt Rate - Afr Amer 102 mL/min (>60); Glucose 105 mg/dL (74-106); High Density Lipoprotein 70 mg/dL; Potassium 3.5 mmol/L (3.5-5.1); Sodium Level 139 mmol/L (136-145); T4 Free Direct 0.95 ng/dL (0.76-1.46); Thyroid Stim Hormone (TSH) 1.38 uIU/mL (0.358-3.74); Triglycerides 91 mg/dL; Very Low Density Lipoprotein 18 mg/dL (5-40)
[2024-05-11 12:08] LABS: ANTINUCLEAR ANTIBODIES DIRECT Negative (Negative)
[2024-05-12 16:00] LABS: Rheumatoid Factor < 10.0 IU/mL (<15)
== END | disposition home or self-care (01) ==
LOC: MTLAB 10:29
PROVIDERS: PCP Family Medicine; Referring Provider Family Medicine; Visit Provider Family Medicine
DX: M50.30 Other cervical disc degeneration, unspecified cervical region (principal); M81.0 Age-related osteoporosis without current pathological fracture; R53.83 Other fatigue; Z13.220 Encounter for screening for lipoid disorders; E03.9 Hypothyroidism, unspecified
CPT/HCPCS: 36415; 80048; 80061; 82306; 83970; 84439; 84443; 85027; 85652; 86038; 86140; 86431

== ENCOUNTER → 2024-05-25 | Outpatient (CLI) | payer BC, SELFPAY ==
--- NOTE | 2024-05-25 10:15 | MRI_ITS ---
HISTORY: DDD, NECK PAIN, HEADACHES. TECHNIQUE: Multiplanar and multisequence MR images of the cervical spine were obtained without contrast. 213 images. COMPARISON: 05/16/2022. FINDINGS: Motion artifact lowers the sensitivity of the examination. VERTEBRAE: Vertebral body heights maintained. Degenerative endplate changes at multiple levels. VERTEBRAL ALIGNMENT: Straightening of the cervical lordosis without anterior or posterior subluxation. SPINAL CORD: Cervical cord signal and morphology within normal limits. SOFT TISSUES: No prevertebral fluid collection. INTERVERTEBRAL DISCS: C2-3, C3-4: No significant posterior disc protrusion, central canal stenosis, or foraminal narrowing. C4-5: Mild posterior disc bulge osteophyte complex with uncovertebral and facet arthropathy resulting in minimal narrowing of thecal sac and mild bilateral foraminal narrowing. C5-6, C6-7: Mild posterior disc bulge osteophyte complexes with uncovertebral and facet arthropathy resulting in mild central canal stenosis and bilateral foraminal narrowing. C7-T1: No significant posterior disc protrusion, central canal stenosis, or foraminal narrowing MRI/Spine Cervical (Routine) IMPRESSION: Mild multilevel degenerative disc disease of the cervical spine as above. Electronically Signed: Nadege Soriano MD at 8:34 EDT ,
== END | disposition home or self-care (01) ==
PROVIDERS: PCP Family Medicine; Referring Provider Family Medicine; Visit Provider Family Medicine
DX: M50.30 Other cervical disc degeneration, unspecified cervical region (principal)
CPT/HCPCS: 72141

== ENCOUNTER → 2024-06-17 | Outpatient (CLI) | payer BC, SELFPAY ==
--- NOTE | 2024-06-17 16:55 | RAD_ITS ---
STUDY: X-RAY - LEFT KNEE REASON FOR EXAM: Female, 59 years old. pain posterior TECHNIQUE: 4 view(s) of the knee. COMPARISON: None. FINDINGS: Normal visualized distal femur. Normal visualized proximal tibia and fibula. Normal proximal tibiofibular articulation. There is mild degenerative arthrosis of the medial femorotibial compartment. Normal lateral femorotibial compartment. Normal patellofemoral articulation. The soft tissue structures are unremarkable. RAD/Knee 4 or More Views IMPRESSION: Degenerative arthrosis. Electronically Signed: Marcelino Velazquez MD at 17:14 EDT ,
== END | disposition home or self-care (01) ==
LOC: MTRAD 16:54
PROVIDERS: PCP Family Medicine; Visit Provider Family Medicine
DX: M25.562 Pain in left knee (principal)
CPT/HCPCS: 73564

== ENCOUNTER → 2025-05-21 | Outpatient (CLI) | payer BC, SELFPAY ==
[2025-05-21 12:34] LABS: Erythrocyte Sedimentation Rate 5 mm/hr (0-30)
[2025-05-21 12:45] LABS: Basophil# 0.05 X10^3/uL; Eosinophil# 0.06 X10^3/uL; Eosinophils% 1.2 % (0-5); Hematocrit 42.9 % (37-47); Lymphocyte % 30.5 % (19-41); Mean Corp Hgb Conc 32.6 g/dL (32-36); Mean Corpuscular Hgb 30.6 pg (27.0-32.0); Mean Corpuscular Volume 93.9 fL (81-99); Monocyte# 0.34 X10^3/uL; Monocyte% 6.9 % (0-10); NRBC Flagged by Analyzer 0 % (0-5); Neutrophil # 2.95 X10^3/uL (2.7-7.7); Neutrophil % 60.2 % (47-70); Platelet Count 198 K/mm3 (150-450); RBC Distribution Width CV 12.4 % (11.6-14.6); RBC Distribution Width SD 42.7 fl (35.1-43.9); Red Blood Count 4.57 M/mm3 (4.2-5.4); White Blood Count 4.9 K/mm3 (4.4-11.0)
[2025-05-21 12:51] LABS: PTHIN 42 pg/mL (11-61)
[2025-05-21 15:55] LABS: ALB/GLOB Ratio 1.3 RATIO (0.9-2.4); AST(SGOT) 24 U/L (<=31); Alanine Aminotransfer ALT/SGPT 25 U/L (<=34); Albumin, Serum 4.1 g/dL (3.4-4.8); Alkaline Phosphatase 60 U/L (35-104); Anion Gap 10 (5-15); BUN 11 mg/dL (4-19); BUN/Creat Ratio 13.2 RATIO (10-20); Calcium,Total 9.3 mg/dL (7.6-11.0); Carbon Dioxide 23.5 mmol/L (21.0-32.0); Chloride 106 mmol/L (98-108); Cholesterol 206 mg/dL (<=200); Creatinine, Serum 0.83 mg/dL (0.70-1.20); EST Glomerular Filtration Rate 80 (>60); Globulin 3.3 g/dL (2.2-4.2); Glucose 101 mg/dL (70-99); High Density Lipoprotein 70 mg/dL; Low Density Lipoprotein Calc. 114 mg/dL; Magnesium 2.3 mg/dL (1.5-2.2); Potassium 4.1 mmol/L (3.3-5.1); Protein, Total 7.4 g/dL (5.9-8.4); Sodium Level 140 mmol/L (133-145); Total Bilirubin 0.87 mg/dL (0.00-1.30); Triglycerides 111 mg/dL; Very Low Density Lipoprotein 22 mg/dL (5-40); Vitamin D,25 Hydroxy 28.3 ng/mL (30-100); cholesterol:hdl ratio screen 2.96
== END | disposition home or self-care (01) ==
LOC: MFPLAB 10:10
PROVIDERS: PCP Family Medicine; Referring Provider Family Medicine; Visit Provider Family Medicine
DX: Z13.220 Encounter for screening for lipoid disorders (principal); E03.9 Hypothyroidism, unspecified; E55.9 Vitamin D deficiency, unspecified; M81.0 Age-related osteoporosis without current pathological fracture; R25.2 Cramp and spasm
CPT/HCPCS: 36415; 80053; 80061; 82306; 83735; 83970; 84439; 84443; 85025; 85652